=== PATIENT | male | born 1960 | race Caucasian/White ===

== ENCOUNTER → 2021-01-25 15:40 | Outpatient (BNVA) | payer OTHER, SELFPAY | PROVIDERS: Visit Provider Urology | DX: N40.1 Benign prostatic hyperplasia with lower urinary tract symptoms (principal); N13.8 Other obstructive and reflux uropathy; N41.9 Inflammatory disease of prostate, unspecified; R10.2 Pelvic and perineal pain; R97.20 Elevated prostate specific antigen [PSA] | CPT/HCPCS: 99212 ==

== ENCOUNTER → 2021-07-26 15:36 | Outpatient (BNVA) | payer OTHER, SELFPAY | PROVIDERS: PCP Internal Medicine; Visit Provider Urology | DX: N40.1 Benign prostatic hyperplasia with lower urinary tract symptoms (principal); N13.8 Other obstructive and reflux uropathy; R10.2 Pelvic and perineal pain | CPT/HCPCS: 51798 ==

== ENCOUNTER 2023-07-30 15:40 | Outpatient (AMB) | payer OTHER, SELFPAY ==
--- NOTE | 2023-07-30 15:41 | MHC.OFFVIS ---
Intake Intake Visit Reasons: 1Y PSA(set) Intake Note: Patient is Present for Follow Up PSA Urology Medication: Finasteride Antibiotic Allergies:None Blood Thinners:none Allergies No Known Allergies [No Known Allergies*] Allergy (Verified 01/25/21 15:52) HPI HPI Comments History of Present Illness Details Stephan is a pleasant male. He is a patient of Dr Fallon. He is seen for the following urologic conditions - BPH - variable PSA - interstitial cystitis with prostatodynia Cut down Proscar to 3 times a week Normal LAMBERTO PSA stable Off flomax Lower urinary tract symptoms Current PSA 08/28 1.3, 05/20 1.8, 07/31 1.3, 08/01 1.5 Prior prostate procedure with laser prostate Had stones in bladder previously Currently with minimal issues regarding urination Prior therapy combination Proscar and Flomax Effective urination LAMBERTO enlarged prostate Review in 12 months [facility] Medical History Dysuria Elevated PSA Review of Systems Const Denies chills and Denies fever(s) Card Reports no additional complaints and Denies syncope Resp Denies cough GI Denies abdominal pain and Denies heartburn Reports as per HPI and Denies change in libido Neuro Denies syncope Psych Denies change in libido Endo Denies change in libido Physical Exam Const General: cooperative, healthy appearing, comfortable and no acute distress Orientation/consciousness: patient oriented x3 HEENT Face and sinus: Yes normal facial exam Mouth: moist mucous membranes Neck Neck: Yes normal visual inspection, Yes full ROM and Yes trachea midline Chest Chest palpation & inspection: normal inspection of the chest Resp Effort & Inspection: normal respiratory effort, able to speak in complete sentences and no respiratory distress GI Inspection: Yes normal to inspection Back/Spine/Pelvis Cervical Spine: normal cervical lordosis Thoracic/Lumbar Spine: thoracic and lumbar spine normal to inspection Skin General skin exam: no rashes or lesions noted Neuro General: patient oriented x3, gait normal, tone normal and moves all extremities Extrem General: Yes normal to inspection and Yes capillary refill normal Assessment & Plan Assessment & Plan (1) Pelvic pain in male: Code(s): R10.2 - Pelvic and perineal pain (2) Prostatitis: Code(s): N41.9 - Inflammatory disease of prostate, unspecified (3) BPH w urinary obs/LUTS: Code(s): N40.1 - Benign prostatic hyperplasia with lower urinary tract symptoms; N13.8 - Other obstructive and reflux uropathy Plan Twelve month follow-up Orders: Orders Prostate Specific Antigen 364 Days N40.1 - Benign prostatic hyperplasia with lower urinary tract symptoms, N13.8 - Other obstructive and reflux uropathy Patient Instructions: Imaging studies, laboratory and physical exam results were discussed and reviewed in detail. No major barriers to patient understanding were identified. An opportunity to ask questions regarding the treatment plan was provided. All questions were answered. The patient expressed understanding and agreement with the above treatment plan. The patient is aware they should contact our office by phone for worsening of their current condition or the appearance of new urologic symptoms. Compliance is encouraged with any medications and followup testing that is ordered. It is a privilege to participate in the urologic care of your patient. If you have any questions or concerns regarding treatment for the above conditions, or other urologic issues, please do not hesitate to contact me. The office telephone contact is [phone]. This note is constructed using voice recognition software. While every effort has been made to ensure accuracy deburr operator errors may have been included. Yours sincerely, Dr Gurpreet Arechiga MD, [facility] - Urology Providers of Expert, Compassionate Care for the Genitourinary System Coding Level of Care Code Est Pt Level 4 (59539) Diagnoses Pelvic pain in male R10.2 Prostatitis N41.9 BPH w urinary obs/LUTS N40.1; N13.8
== END 2023-07-30 16:03 | disposition home or self-care (01) ==
PROVIDERS: Visit Provider Urology
DX: R10.2 Pelvic and perineal pain (principal); N41.9 Inflammatory disease of prostate, unspecified; N40.1 Benign prostatic hyperplasia with lower urinary tract symptoms; N13.8 Other obstructive and reflux uropathy
CPT/HCPCS: 99214

== ENCOUNTER → 2023-07-30 15:40 | Outpatient (BNVA) | payer OTHER, SELFPAY | PROVIDERS: Visit Provider Urology ==

== ENCOUNTER 2024-07-24 14:35 | Outpatient (REF) | payer OTHER, SELFPAY ==
[2024-07-24 16:19] LABS: Prostate Specific Antigen 1.84 ng/mL (<0.05-4.0)
== END 2024-07-24 14:36 | disposition home or self-care (01) ==
LOC: HO.LAB 14:35
PROVIDERS: PCP Internal Medicine; Visit Provider Urology
DX: N40.1 Benign prostatic hyperplasia with lower urinary tract symptoms (principal); N13.8 Other obstructive and reflux uropathy; Z12.5 Encounter for screening for malignant neoplasm of prostate
CPT/HCPCS: 36415; 84153

== ENCOUNTER 2024-07-31 13:05 | Outpatient (AMB) | payer OTHER, SELFPAY ==
--- NOTE | 2024-07-31 13:15 | MHC.OFFVIS ---
Intake Visit Reasons: 1y/PSA(set) Intake Note: Patient is present for PSA Follow Up Urology Med: Finasteride Antibiotic Allergy: None Blood Thinner: None PSA: 07/24/24- 1.84 Patient states he just picked up his 3 month supply of finasteride, would like script sent in for entire year. Signals Analyst Required: No Accompanied by: Self / Same As Patient Allergies No Known Allergies [No Known Allergies*] Allergy (Verified 07/31/24 13:24) HPI Comments Details: Stephan is a pleasant male. He is a patient of Dr Fallon. He is seen for the following urologic conditions - lower urinary tract symptoms - variable PSA - interstitial cystitis with prostatodynia Yearly follow-up Minimal symptoms past 12 months Cut down Proscar to 3 times a week Normal LAMBERTO PSA stable Off flomax Lower urinary tract symptoms Current PSA 08/28 1.3, 05/20 1.8, 07/31 1.3, 08/01 1.5, 08/02 1.8 Prior prostate procedure with laser prostate Had stones in bladder previously Currently with minimal issues regarding urination Prior therapy combination Proscar and Flomax Effective urination LAMBERTO enlarged prostate Review in 12 months [facility] Medical History Dysuria Elevated PSA Review of Systems Const Denies chills and Denies fever(s) Card Reports no additional complaints and Denies syncope Resp Denies cough GI Denies abdominal pain and Denies heartburn Reports as per HPI and Denies change in libido Neuro Denies syncope Psych Denies change in libido Endo Denies change in libido Physical Exam Const General: cooperative, healthy appearing, comfortable and no acute distress Orientation/consciousness: patient oriented x3 HEENT Face and sinus: Yes normal facial exam Mouth: moist mucous membranes Neck Neck: Yes normal visual inspection, Yes full ROM and Yes trachea midline Chest Chest palpation & inspection: normal inspection of the chest Resp Effort & Inspection: normal respiratory effort, able to speak in complete sentences and no respiratory distress GI Inspection: Yes normal to inspection Back/Spine/Pelvis Cervical Spine: normal cervical lordosis Thoracic/Lumbar Spine: thoracic and lumbar spine normal to inspection Skin General skin exam: no rashes or lesions noted Neuro General: patient oriented x3, gait normal, tone normal and moves all extremities Extrem General: Yes normal to inspection and Yes capillary refill normal Assessment & Plan Assessment & Plan (1) BPH w urinary obs/LUTS: Code(s): N40.1 - Benign prostatic hyperplasia with lower urinary tract symptoms; N13.8 - Other obstructive and reflux uropathy Category: Medical (2) Pelvic pain in male: Code(s): R10.2 - Pelvic and perineal pain Category: Medical Plan Twelve month follow-up office PSA Orders: Orders Prostate Specific Antigen 364 Days R10.2 - Pelvic and perineal pain Patient Instructions: Imaging studies, laboratory and physical exam results were discussed and reviewed in detail. No major barriers to patient understanding were identified. An opportunity to ask questions regarding the treatment plan was provided. All questions were answered. The patient expressed understanding and agreement with the above treatment plan. The patient is aware they should contact our office by phone for worsening of their current condition or the appearance of new urologic symptoms. Compliance is encouraged with any medications and followup testing that is ordered. It is a privilege to participate in the urologic care of your patient. If you have any questions or concerns regarding treatment for the above conditions, or other urologic issues, please do not hesitate to contact me. The office telephone contact is [phone]. This note is constructed using voice recognition software. While every effort has been made to ensure accuracy foreign banknote teller trader errors may have been included. Yours sincerely, Dr Gurpreet Arechiga MD, [facility] - Urology Providers of Expert, Compassionate Care for the Genitourinary System Coding Level of Care Code Est Pt Level 4 (20754) Diagnoses BPH w urinary obs/LUTS N40.1; N13.8 Pelvic pain in male R10.2
== END 2024-07-31 13:48 | disposition home or self-care (01) ==
PROVIDERS: PCP Internal Medicine; Visit Provider Urology
DX: N40.1 Benign prostatic hyperplasia with lower urinary tract symptoms (principal); N13.8 Other obstructive and reflux uropathy; R10.2 Pelvic and perineal pain
CPT/HCPCS: 99214

== ENCOUNTER → 2024-07-31 13:05 | Outpatient (BNVA) | payer OTHER, SELFPAY | PROVIDERS: PCP Internal Medicine; Visit Provider Urology ==

== ENCOUNTER 2025-07-30 13:15 | Outpatient (AMB) | payer OTHER, SELFPAY ==
--- NOTE | 2025-07-30 13:36 | A.OFFVIS_ITS ---
Intake Visit Reasons: 1Y PSA/PVR(set) Intake Note: Patient Is Present for PSA/PVR Urology Med: Finasteride Antibiotic Allergy: None Blood Thinner: None PVR: 0ml Steam Cleaning Machine Operator Required: No Accompanied by: Self / Same As Patient Allergies No Known Allergies (No Known Allergies*) Allergy (Verified 07/30/25 13:39) HPI Comments Details: Stephan is a pleasant male. He is a patient of Dr Fallon. He is seen for the following urologic conditions - lower urinary tract symptoms - variable PSA - interstitial cystitis with prostatodynia Yearly follow-up Minimal symptoms past 12 months Finasteride 3 days a week PVR 0 cc Refill medication Twelve month follow-up Lower urinary tract symptoms Current PSA 08/28 1.3, 05/20 1.8, 07/31 1.3, 08/01 1.5, 08/02 1.8 Prior prostate procedure with laser prostate Had stones in bladder previously Currently with minimal issues regarding urination Prior therapy combination Proscar and Flomax Effective urination LAMBERTO enlarged prostate PFSH Medical History Dysuria Elevated PSA Review of Systems Const Denies chills and Denies fever(s) Card Reports no additional complaints and Denies syncope Resp Denies cough GI Denies abdominal pain and Denies heartburn Reports as per HPI and Denies change in libido Neuro Denies syncope Psych Denies change in libido Endo Denies change in libido Physical Exam Const General: cooperative, healthy appearing, comfortable and no acute distress Orientation/consciousness: patient oriented x3 HEENT Face and sinus: Yes normal facial exam Mouth: moist mucous membranes Neck Neck: Yes normal visual inspection, Yes full ROM and Yes trachea midline Chest Chest palpation & inspection: normal inspection of the chest Resp Effort & Inspection: normal respiratory effort, able to speak in complete sentences and no respiratory distress GI Inspection: Yes normal to inspection Back/Spine/Pelvis Cervical Spine: normal cervical lordosis Thoracic/Lumbar Spine: thoracic and lumbar spine normal to inspection Skin General skin exam: no rashes or lesions noted Neuro General: patient oriented x3, gait normal, tone normal and moves all extremities Extrem General: Yes normal to inspection and Yes capillary refill normal Office Procedures Post Void Residual Post Residual Void Post Void Residual (PVR): 0 [id number] Void Residual by ultrasound Assessment & Plan Assessment & Plan (1) BPH w urinary obs/LUTS: Code(s): N40.1 - Benign prostatic hyperplasia with lower urinary tract symptoms; N13.8 - Other obstructive and reflux uropathy Category: Medical (2) Prostatitis: Code(s): N41.9 - Inflammatory disease of prostate, unspecified Category: Medical Plan Twelve month follow-up PSA Orders: Orders Prostate Specific Antigen 12 Months N41.9 - Inflammatory disease of prostate, unspecified AMB Post Void Residual by ultrasound Today N13.8 - Other obstructive and reflux uropathy, N40.1 - Benign prostatic hyperplasia with lower urinary tract symptoms Medications: Refilled finasteride 5 mg PO DAILY 90 tabs 3RF 90 days N13.8 - Other obstructive and reflux uropathy, N40.1 - Benign prostatic hyperplasia with lower urinary tract symptoms Patient Instructions: This note is constructed using voice recognition software. While every effort has been made to ensure accuracy range examiner errors may have been included. Imaging studies, laboratory and physical exam results were discussed and reviewed in detail. No major barriers to patient understanding were identified. An opportunity to ask questions regarding the treatment plan was provided. All questions were answered. The patient expressed understanding and agreement with the above treatment plan. The patient is aware they should contact our office by phone for worsening of their current condition or the appearance of new urologic symptoms. Compliance is encouraged with any medications and followup testing that is ordered. It is a privilege to participate in the urologic care of your patient. If you have any questions or concerns regarding treatment for the above conditions, or other urologic issues, please do not hesitate to contact me. The office telephone contact is [phone]. Sincerely, Dr Gurpreet Arechiga MD, [facility] - Urology Compassionate Specialist Care for the Genitourinary System Coding Level of Care Code Est Pt Level 4 (29916) Diagnoses BPH w urinary obs/LUTS N40.1; N13.8 Prostatitis N41.9 CPT Codes Post Residual Void - PVR CPT Code: [id number] Void Residual by ultrasound ([id number])
== END 2025-07-30 14:02 | disposition home or self-care (01) ==
LOC: HO.HUSH 13:16
PROVIDERS: PCP Internal Medicine; Visit Provider Urology
DX: N40.1 Benign prostatic hyperplasia with lower urinary tract symptoms (principal); N13.8 Other obstructive and reflux uropathy; N41.9 Inflammatory disease of prostate, unspecified
CPT/HCPCS: 99214

== ENCOUNTER → 2025-07-30 13:15 | Outpatient (BNVA) | payer OTHER, SELFPAY | PROVIDERS: PCP Internal Medicine; Visit Provider Urology | DX: N40.1 Benign prostatic hyperplasia with lower urinary tract symptoms (principal); N13.8 Other obstructive and reflux uropathy; N41.9 Inflammatory disease of prostate, unspecified | CPT/HCPCS: 51798 ==